=== PATIENT | male | born 1940 | race Caucasian/White ===

== ENCOUNTER 2016-05-29 09:45 | Day surgery (SDC) | payer MEDICARE, OTHER ==
[2016-05-29] VITALS (9 sets, daily range): BP systolic 106–137; BP diastolic 61–87; PULSE 73–81; TEMP 98.4
[~2016-05-29] VITALS: Ht 183 cm; Wt 156.0 kg
[2016-05-29 10:44] LABS: HEMATOCRIT 44.4 % (42.0-52.0); MEAN CELL VOLUME 90 fl (80.0-100.0); MEAN CORPUSCULAR HEMOGLOBIN 29 pg (27.0-31.0); MEAN CORPUSCULAR HGB CONC 32 g/dl (33.0-37.0); MEAN PLATELET VOLUME 10.9 fl (7.4-10.4); PLATELET COUNT 214 K/mm3 (130-400); RED BLOOD COUNT 4.92 M/mm3 (4.20-5.60); REDCELL DISTRIBUTION WIDTH-CV 14.1 % (11.5-14.5); WHITE BLOOD COUNT 8.4 K/mm3 (4.8-10.8)
[2016-05-29 10:52] LABS: PROTHROMBIN TIME 23.2 SECONDS (9.7-12.8)
[2016-05-29 11:12] LABS: CALCIUM 9.5 mg/dL (8.4-10.2); CREATININE, serum 1.08 mg/dL (0.66-1.25); POTASSIUM 4.8 mmol/L (3.4-5.0)
[2016-05-29] MEDS ORDERED: SINGULAIR 110 MG/TAB PO (11:12)
[2016-05-29] MEDS ORDERED: BENICAR 20MG TA20 MG PO (11:12)
[2016-05-29] MEDS ORDERED: COUMADIN 6MG6 MG/TAB PO (11:13)
[2016-05-29] MEDS ORDERED: FLOMAX 0.40.4 MG/CAP PO (11:14)
[2016-05-29] MEDS ORDERED: PROSCAR 5MG5 MG PO (11:14)
[2016-05-29] MEDS ORDERED: CO Q-1010 M1 PO (11:15)
[2016-05-29] MEDS ORDERED: FISH OIL1000 MG PO (11:15)
[2016-05-29] MEDS ORDERED: MAG-OX 400400 MG/TAB PO (11:16)
[2016-05-29] MEDS ORDERED: B-12 500 MCG PO (11:17)
[2016-05-29] MEDS ORDERED: MULTI VITAMINS1 TAB PO (11:17)
[2016-05-29] MEDS ORDERED: ASPIRIN 81M81 MG/TA2 PO (17:47)
[2016-05-29] MEDS ORDERED: LIPITOR 80MG80 MG PO (17:47)
== END 2016-05-29 20:49 | disposition home or self-care (01) ==
LOC: COL.RAD 09:45
PROVIDERS: Internal Medicine Interventional Cardiology
DX: Z01.810 Encounter for preprocedural cardiovascular examination (principal); I25.10 Atherosclerotic heart disease of native coronary artery without angina pectoris; R94.39 Abnormal result of other cardiovascular function study; R07.9 Chest pain, unspecified; R06.02 Shortness of breath; R60.0 Localized edema; I10 Essential (primary) hypertension; J44.9 Chronic obstructive pulmonary disease, unspecified; Z79.899 Other long term (current) drug therapy; Z79.01 Long term (current) use of anticoagulants; Z86.711 Personal history of pulmonary embolism
CPT/HCPCS: C1769; C1887; C1894; J2250; J3010; Q9967

== ENCOUNTER 2021-11-11 12:56 | Day surgery (SDC) | payer MEDICARE, OTHER ==
[~2021-11-11] VITALS: Ht 182.9 cm; Wt 159.3 kg
[2021-11-11] VITALS (9 sets, daily range): BP systolic 112–135; BP diastolic 62–87; PULSE 61–96; TEMP 98–98.5
[~2021-11-11 12:56] MED LIST: ASPIRIN 81M81 MG/TA2 PO; B-12 500 MCG PO; BENICAR 20MG TA20 MG PO; CO Q-1010 M1 PO; COUMADIN 6MG6 MG/TAB PO; FISH OIL1000 MG PO; FLOMAX 0.40.4 MG/CAP PO; LIPITOR 80MG80 MG PO; MAG-OX 400400 MG/TAB PO; MULTI VITAMINS1 TAB PO; PROSCAR 5MG5 MG PO; SINGULAIR 110 MG/TAB PO
[2021-11-11 14:13] LABS: HEMATOCRIT 37.5 % (42.0-52.0); HEMOGLOBIN 12.1 g/dl (13.5-18.0); MEAN CELL VOLUME 90 fl (80.0-100.0); MEAN CORPUSCULAR HEMOGLOBIN 29 pg (27-31); MEAN CORPUSCULAR HGB CONC 32 g/dl (33.0-37.0); MEAN PLATELET VOLUME 10.8 fl (7.4-10.4); PLATELET COUNT 194 K/mm3 (130-400); RED BLOOD COUNT 4.17 M/mm3 (4.20-5.60); REDCELL DISTRIBUTION WIDTH-CV 15.6 % (11.5-14.5)
[2021-11-11] MEDS ORDERED: ULTRAM 50MG TAB50 MG PO (14:22)
[2021-11-11] MEDS ORDERED: TYLENOL 500MG500 MG PO (14:23)
[2021-11-11] MEDS ORDERED: COUMADIN 3MG3 MG/TAB PO (14:26)
[2021-11-11] MEDS ORDERED: HCTZ 25MG TAB25 MG PO (14:27)
[2021-11-11] MEDS ORDERED: COUMADIN4 MG PO (14:27)
[2021-11-11] MEDS ORDERED: DITROPAN XL15 MG PO (14:28)
[2021-11-11 14:30] LABS: INR 1.1 (0.8-3.0); PROTHROMBIN TIME 12.9 SECONDS (9.7-12.8)
[2021-11-11 14:34] LABS: CREATININE, serum 1.26 mg/dL (0.72-1.25); POTASSIUM 4.1 mmol/L (3.5-4.5)
--- NOTE | 2021-11-11 17:00 | NUR ---
PT TO ROOM 344 PER BED WITH REPORT FROM NEELIMA [employer]SULT[employer] GIVING REPORT @0740. PT IS A/OX4, LUNGS CLEAR, BOWEL SOUNDS ACTIVE. LOVE CATHETER TO DD WITH CBI RUNNING SLOWLY. PT DENIES NEEDS OR PAIN AT THIS TIME. IV TO PUMP PER ORDERS.
--- NOTE | 2021-11-11 21:10 | NUR ---
Pt. sitting up in bed. Pt. is A&OX3, assessment complete. IV to rt. wrist patent, IV fluids infusing per orders. [place] catheter to DD with CBI. Urine is light pink at this time and CBI is running slow. Pt. denies pain or other needs, call light within reach.
[2021-11-12 03:45] VITALS: BP 137/84; PULSE 83; TEMP 98.8
[2021-11-12] MEDS ORDERED: CEPHALEXIN500 M1 PO (07:15)
[2021-11-12 07:34] VITALS: BP 134/73; PULSE 80; TEMP 98.2
--- NOTE | 2021-11-12 09:24 | NUR ---
Initial visit; Patient upset when Gunner'[employer] Mate talked with him. Gunner'S Mate listened and tried to calm him and assured him we will provide the care he needs while he is with us. He thanked Gunner'S Mate for stopping by and offering God's blessings.
--- NOTE | 2021-11-12 09:29 | NUR ---
PT SITTING UP IN RECLINER, DENIES NEEDS. AM MEDS GIVEN ORDERED. CLEAR YELLOW URINE IN SKELTON BAG. cbi running slow. pt to go home with skelton and follow up outpatient with Dr. Fernandez.
--- NOTE | 2021-11-12 11:30 | NUR ---
DISCHARGE TEACHING COMPLETE INCLUDING LOVE CARE. QUESTIONS SOLICITED AND ANSWERED. PT LEFT UNIT PER WHEEL CHAIR WITH STAFF.
== END 2021-11-12 11:33 | disposition home or self-care (01) ==
LOC: SDCO 12:56 → SURG 17:00 → SDCO 11-12 11:33
PROVIDERS: Nurse Anesthetist, Certified Registered
DX: C61 Malignant neoplasm of prostate (principal); C67.9 Malignant neoplasm of bladder, unspecified; N32.0 Bladder-neck obstruction; N40.1 Benign prostatic hyperplasia with lower urinary tract symptoms; R35.0 Frequency of micturition; N39.41 Urge incontinence; Z87.891 Personal history of nicotine dependence
CPT/HCPCS: OP; J0690; J1100; J2250; J2370; J2405; J2704; J7120

== ENCOUNTER → 2021-12-15 | Outpatient (CLI) | payer MEDICARE, OTHER ==
[~2021-12-15] MED LIST changes: +CEPHALEXIN500 M1 PO; +COUMADIN 3MG3 MG/TAB PO; +COUMADIN4 MG PO; +DITROPAN XL15 MG PO; +HCTZ 25MG TAB25 MG PO; +TYLENOL 500MG500 MG PO; +ULTRAM 50MG TAB50 MG PO
== END ==
LOC: COL.RAD 09:03
DX: C61 Malignant neoplasm of prostate (principal); M47.819 Spondylosis without myelopathy or radiculopathy, site unspecified
CPT/HCPCS: A9503